=== PATIENT | female | born 1990 | race Caucasian/White ===

== ENCOUNTER 2017-01-09 20:16 | Emergency (ER) | payer SELFPAY ==
[~2017-01-09] VITALS: Ht 167.6 cm; Wt 131.3 kg
[2017-01-09 20:18] VITALS: Ht 167.6 cm; Wt 131.3 kg
--- OUTSIDE RECORDS SUMMARY | 2017-01-09 20:20 | XMS REPORT | Continuity of Care Document ---
Author Author [facility] Address Unknown Phone Unavailable Allergies Active Description Code Type Severity Reaction Onset Reported/Identified Relationship to Patient Clinical Status Yes No Known Drug Allergies [id number] Drug Allergy Unknown N/ A 12/26/2015 Medications Problems Date Dx Coded Attending Type Code Diagnosis Diagnosed By 07/18/2014 ELIZABETH CRISTINA MD Ot 041.9 07/18/2014 ELIZABETH CRISTINA MD Ot 616.10 07/18/2014 ELIZABETH CRISTINA MD Ot 625.9 06/02/2015 GERI RITCHIE MD Ot 729.5 06/02/2015 GERI RITCHIE MD R Ot 917.6 06/02/2015 GERI RITCHIE MD R Ot E849.0 06/02/2015 GERI RITCHIE MD R Ot E920.8 06/02/2015 GERI RITCHIE MD Ot V06.1 10/13/2015 ILEANA DOS SANTOS APRN Ot N92.0 10/21/2015 ILEANA DOS SANTOS APRN Ot N92.0 12/26/2015 Ot B34.9 VIRAL INFECTION, UNSPECIFIED 12/26/2015 Ot F17.210 NICOTINE DEPENDENCE, CIGARETTES, UNCOMPL 12/26/2015 Ot J02.9 ACUTE PHARYNGITIS, UNSPECIFIED 12/26/2015 Ot M79.1 MYALGIA 12/26/2015 Ot R05 COUGH 12/26/2015 Ot R06.02 SHORTNESS OF BREATH 12/26/2015 Ot R50.9 FEVER, UNSPECIFIED 12/26/2015 Ot R61 GENERALIZED HYPERHIDROSIS 12/30/2015 Ot B34.9 12/30/2015 Ot F17.210 12/30/2015 Ot J02.9 12/30/2015 Ot M79.1 12/30/2015 Ot R05 12/30/2015 Ot R06.02 12/30/2015 Ot R50.9 12/30/2015 Ot R61 Procedures Results Encounters ACCT No. Visit Date/Time Discharge Status Pt. Type Provider Facility Loc./Unit Complaint [id number] 06/02/2015 17:50:00 2014 20:08:00 DIS Emergency ERMA ROBLERO, [facility] ED [id number] 07/18/2014 15:37:00 2013 18:25:00 DIS Emergency JONNIE ROBLERO, [facility] ED [id number] 12/26/2015 17:20:00 Document Registration [id number] 10/05/2015 09:28:00 ACT Outpatient ILEANA DOS SANTOS APRN [facility] RAD
--- OUTSIDE RECORDS SUMMARY | 2017-01-09 20:20 | XMS REPORT | Continuity of Care Document ---
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 Hospital Discharge Instructions No hospital discharge instructions. Plan of Care Discharge Date 06/02/15 8:08pm Disposition 01 HOME OR SELF-CARE Condition at Discharge Stable Instructions/Education Provided Soft Tissue Foreign Body (GEN) Prescriptions See Medications Section Referrals Emmett Ruiz Additional Instructions/Education Keflex 500mg as Rx'd, three times a day for 10 days. OTC Ibuprofen 400mg every 6 to 8 hours with food as needed for pain. Elevate as much as possible for now. Released from work for tonight. Please call Dr. Elizondo' office in the morning; he stated he can probably see you in his office tomorrow (likely afternoon). Return to ER as needed, especially for increased pain or redness or purulent discharge. Some of your test results may not be complete prior to your leaving the Emergency Department. The Emergency Department is not authorized to give test results over the phone. Please contact the doctor's office listed in this packet of information for your final results. Follow up with your primary care physician or return to the Emergency Department for worsening or worrisome symptoms. * Emergency Department phone number: [phone], x [phone]* MEDICAL RECORD If you need copies of your X-rays, call [phone] x [phone]. If you need copies of your medical record, including lab results, a signed authorization for release of records will be required. A telephone call for release of Health Information is not allowed. BILLING Billing can sometimes be confusing and frustrating. To help avoid confusion in the future, please take a moment to acquaint yourself with the billing parties for services. SERVICE BILLING [employer] Emergency Room Services [facility] Physician Services [facility] X[facility] [place] [facility] Patients will receive bills for services from the appropriate provider. If you have any questions about your [facility] bill, our staff will be happy to assist you. Please call [phone], and ask for the billing department. THANK YOU for choosing [facility] as your emergency care provider! Functional Status No functional status results. Allergies, Adverse Reactions, Alerts Allergen Type Severity Reaction Status Last Updated No Known Drug Allergies Active 12/02/12 Immunizations Name Given Type Status Tdap 06/02/15 Administered Completed Vital Signs Acute Vital Signs Vital Response Date/Time Temperature (Fahrenheit) 98.8 Pulse 88 bpm Respirations 18 Height 5 ft 6 in Weight 297 lb Body Mass Index 48.0 kg/m^2 Results Test Source Date Result Interp. Ref. Range Comments Chlamydia/GC DNA Cervix July 18, 2014 4:45pm Gram Stain Other-Vaginal July 18, 2014 4:45pm Procedures No known history of procedures. Encounters Encounter Location Date/Time Departed Emergency Room [facility] 06/02/15 5:50pm Recent Diagnosis
[2017-01-09] MEDS ORDERED: METF10002 PO (20:35)
--- NOTE | 2017-01-09 20:43 | ERPDOC ---
Departure Disposition Decision Date: Jan 09, 2017 Disposition Decision Time: 22:59 Disposition: 01 DISCHARGED HOME, SELF-CARE Impression Impression Impression: Primary Impression: Elevated blood sugar Additional Impressions: Nausea & vomiting Vomiting type: unspecified Vomiting Intractability: non-intractable Qualified Codes: R11.2 - Nausea with vomiting, unspecified Diarrhea Diarrhea type: unspecified type Qualified Codes: R19.7 - Diarrhea, unspecified Condition: Improved Seen By: Mid-level only Referrals: DE ARAUJO MD (Family) Patient Instructions: Acute Nausea and Vomiting (ED), Type 2 Diabetes Management for Adolescents (ED) Problems/Meds/Labs Reviewed?: Yes Medications reviewed and manag: Yes Additional Instructions: Your CBC was normal. Your BS was 197. As discussed you may have a viral gastroenteritis (stomach bug) or the metformin may have caused nausea, vomiting and diarrhea. You may dissolve 4mg of zofran on tongue every 6 hours as needed for nausea and vomiting. Stay well hydrated, drink 8-12 glasses of water daily. Follow treatment plan (see dismissal instructions). Follow with your PCP for re-evaluation if symptoms are not improving in the next 3 days, sooner if worsting symptoms. Follow up care ordered?: Yes Mental Status: Alert, Oriented Scripts Ondansetron (Zofran Odt) 4 Mg Tab.rapdis 4 MG PO Q6HR for NAUSEA &/OR VOMITING, #15 TAB Oral disintegrating tablet Prov: MADHU MONTANA SPAR MACHINE OPERATOR HELPER 01/09/17 HPI - General Medical General Chief Complaint: Diabetic Problem Stated Complaint: HIGH BLOOD SUGAR,VOMITING & DIARRHEA Time Seen by Provider: 20:38 Source: patient HPI - General Medical Initial Comments 36-year-old female presents to ER with complaints of nausea, vomiting and diarrhea for the past 2 days. Patient reports generalized malaise over the last several weeks which she believes is related to her type II diabetes. Patient is noncompliant type II diabetic. Has not taken anything for her diabetes "for years". Patient did find some old metformin that was prescribed by her by her PCP several years ago, which she did take. Patient reports increased urination and thirst. Says she has taken her BS at home and it has been as high as 300. Patient has not follow with her PCP. Associated Symptoms: malaise, nausea/vomiting, DENIES: chest pain, cough, diaphoresis, fever/chills, headaches, loss of appetite, other (dysuria), rash, seizure, shortness of breath, syncope, weakness Allergies: Coded Allergies: No Known Allergies (Unverified , 01/09/17) Past History Past Medical History Metabolic: diabetes (type II) Cardiac: DENIES: angina Respiratory: DENIES: COPD, asthma GI: DENIES: ulcers Female: other (PCOS), DENIES: renal insufficiency Neurological: DENIES: seizures Musculoskeletal: DENIES: rheumatoid arthritis Psychological: DENIES: depression Surgical History Denies Surgeries Family History Family PMH: FOUND: other (noncontributory) Vaccines Hx Influenza Vaccination: No Hx Pneumococcal Vaccination: No Social History Sexuality: female partner Review of Systems Constitutional Constitutional: fatigue, DENIES: chills, dizziness, fever, weakness Eyes General: DENIES: erythema, exudate Lids/Accessories: DENIES: erythema, swelling ENMT Ears: DENIES: pain Sinuses: DENIES: congestion, rhinorrhea Mouth/Throat: DENIES: sore throat Cardiovascular Cardiac: DENIES: chest pain, murmur Rhythm/Rate: DENIES: palpitations Pulmonary Respiratory: DENIES: cough, dyspnea GI Upper Abdomen: nausea, see HPI, vomiting, DENIES: pain Lower Abdomen: diarrhea, see HPI, DENIES: blood in stool, pain General: frequency, DENIES: pain Musculoskeletal General: DENIES: joint pain, pain, tenderness Integumentary Skin: DENIES: color change, itching, rash Neurological General: DENIES: ataxia, change in strength, numbness, paralysis/paresis, weakness Psychiatric Psychiatric: DENIES: anxiety, depression, nervousness Physical Exam General General Nourishment: well nourished, well developed, adult, obese General Body Habitus: well groomed Vitals and Pain First Documented Vital Signs Date Time Temp Pulse Resp B/P Pulse Ox O2 Delivery O2 Flow Rate FiO2 01/09/17 20:18 97.9 94 16 133/67 97 Room Air Weight: Kilograms: Height (feet): Height (inches): Triage Pain Scale: Eyes (brief) Eyes Brief: found: EOMI, PERRL ENMT (brief) ENMT Brief: FOUND: TM clear, TM good light reflex, mucosa moist, NOT FOUND: nasal exudate, nasal swelling, pharnyx erythema Neck (brief) Neck: FOUND: trachea midline, NOT FOUND: adenopathy, spasm, tenderness, thyromegaly Respiratory (brief) Respiratory: FOUND: clear all david, equal bilaterally, symmetrical Cardiovascular (brief) Cardiac: FOUND: regular rate, regular rhythm Abdomen (brief) Abdominal Brief: FOUND: bowel normo active x4, soft, NOT FOUND: distended, tender Musculoskeletal (brief) Musculoskeletal Brief: NOT FOUND: deformity, tenderness Integumentary (brief) Integumentary Brief: FOUND: dry, pink, warm Neurologic (brief) Neurological Brief: FOUND: CN w/o gross def to obs, motor-no gross deficits, sensory-no gross deficits Psychiatric (brief) Psychiatric Brief: FOUND: alert, normal affect, oriented Differential Diagnoses Considering: Hypo/Hyperglycemia, Hypo/Hyperkalemia, Hypo/Hypernatremia, Medication Effect, UTI, Other (Gastroeneteritis, Other Viral Syndrome) Progress Results/Orders Orders Procedure Category Date Status Time Cbc W/Auto LAB 01/09/17 Complete Diff-Reflex Manual 20:51 Cmp - Comprehensive LAB 01/09/17 Complete Metabolic 20:51 Lipase LAB 01/09/17 Complete 20:51 Iv Lock (Ed Only) EDM 01/09/17 Transmitted 20:51 Normal Saline (Normal PHA 01/09/17 Complete Saline Iv) 20:51 Ondansetron Inj PHA 01/09/17 Complete (Zofran) 21:00 LAB 01/09/17 Complete Qualitative, Urine 20:51 UA, LAB 01/09/17 Complete Dip&Micro(Complete) & 21:25 Ondansetron Odt PHA 01/09/17 Complete (Prepack) (Zofran Odt 23:15 Lab Results Laboratory Tests Test 01/09/17 20:26 01/09/17 21:25 Glucometer 182mg/dL White Blood Count 8.0T/MM3 Red Blood Count 4.97M/MM3 Hemoglobin 13.2GM/DL Hematocrit 39.5% Mean Corpuscular Volume 79.5UM3 Mean Corpuscular Hemoglobin 26.6UUG Mean Corpuscular Hemoglobin Concent 33.4GM/DL RDW Standard Deviation 37.4FL Platelet Count 251T/MM3 Mean Platelet Volume 10.9UM3 Immature Granulocyte % (Auto) 0.4% Neutrophils (%) (Auto) 62.9% Lymphocytes (%) (Auto) 29.8% Monocytes (%) (Auto) 4.5% Eosinophils (%) (Auto) 2.1% Basophils (%) (Auto) 0.3% Absolute Immature Granulocyte (auto 0.03T/MM3 Absolute Neutrophils (auto) 5.0T/MM3 Absolute Lymphocytes (auto) 2.4T/MM3 Absolute Monocytes (auto) 0.4T/MM3 Absolute Eosinophils (auto) 0.2T/MM3 Absolute Basophils (auto) 0.0T/MM3 Urine Collection Type Cleancatch-midstream Urine Color Yellow Urine Turbidity Clear Urine pH 5.5 Urine Specific [place] >=1.030 Urine Protein Negative Urine Glucose (UA) Trace Urine Ketones 1+ Urine Blood 3+ Urine Nitrite Negative Urine Bilirubin Negative Urine Urobilinogen 0.2EU/DL Urine Leukocyte Esterase Negative Urine RBC 1-3/HPF Urine WBC 0-1/HPF Urine Squamous Epithelial Cells 10-20 Urine Bacteria 2+ Urine Culture Indicated Cult not indicated Urine Test Negative Turbidity < 20 Sodium Level 142MEQ/L Potassium Level 4.0MEQ/L Chloride Level 103MEQ/L Carbon Dioxide Level 24MEQ/L Anion Gap 15MEQ/L Blood Urea Nitrogen 15.0MG/DL Creatinine 0.4MG/DL Glomerular Filtration Rate Calc 194 BUN/Creatinine Ratio 38RATIO Glucose Level 197MG/DL Calculated Osmolality 279MOSM/KG Calcium Level 9.7MG/DL Total Bilirubin 0.50MG/DL Icterus Index < 2 Aspartate Amino Transf (AST/SGOT) 44U/L Alanine Aminotransferase (ALT/SGPT) 57U/L Alkaline Phosphatase 63U/L Total Protein 7.0G/DL Albumin 3.9G/DL Globulin 3.1G/DL Albumin/Globulin Ratio 1.3RATIO Lipase 59U/L Chemistry Specimen Hemolysis < 15 Medications Current ED Medications Sodium Chloride (Normal Saline IV) 1,000 ml @ 0 mls/hr Q0M ONCE IV Last administered on 01/09/17 21:21; Start 01/09/17 at 20:51; Stop 01/09/17 at 20:53 ; Status DC Ondansetron HCl (Zofran) 4 mg O ONCE IV Last administered on 01/09/17 21:21; Start 01/09/17 at 21:00; Stop 01/09/17 at 21:01; Status DC Ondansetron HCl (ZOFRAN ODT (PrePack)) 1 pack O ONCE SENT HOME Last administered on 01/09/17t 23:25; Start 01/09/17 at 23:15; Stop 01/09/17 at 23:16 ; Status DC Progress Progress Patient reports feeling better after fluids and zofran. CBC-N ALT and ALT mildly elevated Glucose 197 Other chemistries unremarkable Urine 1+ ketones 3+ blood in urine (patient denies flank pain or dysuria) I discussed labs and answered questions in detail with patient. I told patient that she may have gastroenteritis however metformin can cause nausea/vomiting and diarrhea. I discussed follow up with PCP in the next week, sooner if worsting symptoms, treatment plan and return precautions which patient verbalized understanding. MADHU MONTANA SPAR MACHINE OPERATOR HELPER Jan 09, 2017 20:43
--- OUTSIDE RECORDS SUMMARY | 2017-01-09 20:48 | XMS REPORT | Continuity of Care Document ---
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 * Emergency Department phone number: [phone], x [phone]* MEDICAL RECORD If you need copies of your X-rays, call [phone] x [phone]. If you need copies of [...] the billing parties for services. SERVICE BILLING [employer]AT Emergency Room Services [facility] Physician Services [facility] X-[facility] [place] [facility] Patients will receive bills for services from the appropriate provider. If you have any questions about your [facility] bill, our staff will be happy to assist you. Please call [phone], and ask for the billing department. THANK YOU for choosing [facility] as your emergency care provider! Functional [...] Encounters Encounter Location Date/Time Departed Emergency Room [facility] 06/02/15 5:50pm Recent Diagnosis
--- OUTSIDE RECORDS SUMMARY | 2017-01-09 20:48 | XMS REPORT | Continuity of Care Document ---
Author Author [facility] Address Unknown Phone Unavailable Allergies Active Description Code Type Severity Reaction Onset Reported/Identified Relationship to Patient Clinical Status Yes No Known Drug Allergies [id number] Drug Allergy Unknown N/ A 12/26/2015 Medications [...] Status Pt. Type Provider Facility Loc./Unit Complaint [id number] 06/02/2015 17:50:00 2014 20:08:00 DIS Emergency ERMA ROBLERO, [facility] ED [id number] 07/18/2014 15:37:00 2013 18:25:00 DIS Emergency JONNIE ROBLERO, [facility] ED [id number] 12/26/2015 17:20:00 Document Registration [id number] 10/05/2015 09:28:00 ACT Outpatient ILEANA DOS SANTOS APRN [facility] RAD
[2017-01-09] MEDS ORDERED: NORMAL SALINE 1,000 ML IV ONE (20:51)
[2017-01-09] MEDS ORDERED: ONDANSETRON 4mg/2ml INJECTION IV ONE (21:00)
--- NOTE | 2017-01-09 21:15 | NUR ---
UA PT AMBULATED TO THE BATHROOM. UA COLLECTED AND SENT TO LAB
--- NOTE | 2017-01-09 21:25 | NUR ---
LAB HIGH MAN IN ROOM FOR BLOOD DRAW
[2017-01-09 21:30] LABS: BLOOD, URINE 3+ (NEGATIVE); COLOR,URINE YELLOW (YELLOW); LEUKOCYTE ESTERASE ,URINE NEGATIVE (NEGATIVE); NITRITE,URINE NEGATIVE (NEGATIVE); UROBILINOGEN,URINE 0.2 EU/DL (NORMAL)
[2017-01-09 21:39] LABS: BACTERIA,URINE 2+ (NEGATIVE); WBC,URINE 0-1 /HPF (0-5)
[2017-01-09 21:41] LABS: ALBUMIN 3.9 G/DL (3.5-5.0); ALBUMIN/GLOBULIN RATIO 1.3 RATIO (1.1-2.2); ALKALINE PHOSPHATASE 63 U/L (38-126); ALT (SGPT) 57 U/L (9-52); ANION GAP 15 MEQ/L (5-15); AST (SGOT) 44 U/L (14-36); BUN/CREATININE RATIO 38 RATIO (6-26); CALCIUM 9.7 MG/DL (8.4-10.2); CHLORIDE 103 MEQ/L (98-107); CO2 - CARBON DIOXIDE 24 MEQ/L (22-30); CREATININE 0.4 MG/DL (0.7-1.2); GLOMERULAR FILTRATION RATE 194; GLUCOSE 197 MG/DL (65-110); LIPASE 59 U/L (23-300); SODIUM 142 MEQ/L (134-144)
[2017-01-09 21:48] LABS: BASOPHILS % (AUTO) 0.3 % (0-2); EOSINOPHILS # (AUTO) 0.2 T/MM3 (0-0.5); EOSINOPHILS % (AUTO) 2.1 % (0-4); HCT - HEMATOCRIT 39.5 % (36-46); HGB - HEMOGLOBIN 13.2 GM/DL (12-16); IMMATURE GRANULOCYTE # (AUTO) 0.03 T/MM3 (0.00-0.03); IMMATURE GRANULOCYTE % (AUTO) 0.4 % (0.0-0.5); LYMPHOCYTES # (AUTO) 2.4 T/MM3 (1-4.8); LYMPHOCYTES % (AUTO) 29.8 % (23-45); MEAN CORPUSCULAR HGB 26.6 UUG (26-34); MEAN CORPUSCULAR HGB CONC(MCHC 33.4 GM/DL (31-37); MEAN CORPUSCULAR VOLUME 79.5 UM3 (80-100); MEAN PLATELET VOLUME 10.9 UM3 (9.4-12.4); MONOCYTES # (AUTO) 0.4 T/MM3 (0-0.8); MONOCYTES % (AUTO) 4.5 % (0-9.0); NEUTROPHILS % (AUTO) 62.9 % (33-66); RED BLOOD COUNT 4.97 M/MM3 (4.00-5.20)
--- NOTE | 2017-01-09 22:15 | NUR ---
STATUS PT REPORTS NAUSEA IS GONE. PT REPORTS TAKING AN IMMODIUM EARLIER AT HOME, AND REPORTS NO MORE FEELINGS OF DIARREAL STOOLS. OVERALL PT REPORTS FEELING BETTER
[2017-01-09] MEDS ORDERED: ONDA4TAB7 PO (23:07)
[2017-01-09] MEDS ORDERED: ONDANSETRON ODT 4mg #3 (PrePack) SENT HOME ONE (23:15)
[2017-01-09 23:25] VITALS: BP 122/78; PULSE 90; RESP 16; TEMP 97.9; O2SAT 94
--- NOTE | 2017-01-09 23:25 | NUR ---
DEPART PT IS GIVEN DISMISSAL INSTRUCTIONS WITH VERBAL INSTRUCTIONS. PT IS GIVEN PREPACK X1. PT LEAVES AMBULATORY TO REGISTRATION.
== END 2017-01-09 23:25 | disposition home or self-care (01) ==
LOC: ED 20:16
DX: E11.65 Type 2 diabetes mellitus with hyperglycemia (principal); R11.2 Nausea with vomiting, unspecified; R19.7 Diarrhea, unspecified
CPT/HCPCS: 36415; 80053; 81001; 81025; 82948; 83690; 85025